=== PATIENT | male | born 1945 | race Caucasian/White ===

== ENCOUNTER 2017-11-18 00:10 | Inpatient (IN) | payer MEDICARE ==
[~2017-11-18] VITALS: Ht 167.6 cm; Wt 74.5 kg
[2017-11-18] MEDS ORDERED: ACETAMINOPHEN 325 MG TABLET PO PRN (01:00)
[2017-11-18] MEDS ORDERED: MAG HYDROX/AL HYDROX/SIMETH 30 ML ORAL.SUSP PO PRN (01:00)
[2017-11-18] MEDS ORDERED: MAGNESIUM HYDROXIDE 2,400 MG/30 ML ORAL.SUSP. PO PRN (01:00)
[2017-11-18] MEDS ORDERED: METHYL SALICYLATE/MENTHOL TOPICAL OINTMENT 29GM TUBE. TP PRN (01:00)
[2017-11-18 01:01] VITALS: BP 103/75
[2017-11-18] MEDS ORDERED: TADA5TAB PO (01:28)
[2017-11-18] MEDS ORDERED: TURM500C7 PO (01:28)
[2017-11-18] MEDS ORDERED: ALFU10TA23 PO (01:28)
[2017-11-18 07:39] LABS: BASO # 0.1 x10^3/uL (0.0-0.2); BASO % 1 % (0-3); EOS # 0.3 x10^3/uL (0.0-0.7); EOS % 5 % (0-3); HEMATOCRIT 47.7 % (39.0-53.0); HEMOGLOBIN 16.6 g/dL (13.0-17.5); LYMPH # 1.5 x10^3/uL (1.0-4.8); LYMPH % 29 % (24-48); MEAN CORPUSCULAR HEMOGLOBIN 32 pg (25-35); MEAN CORPUSCULAR HGB CONC 35 g/dL (31-37); MEAN CORPUSCULAR VOLUME 93 fL (79-100); MONO # 0.4 x10^3/uL (0.0-1.1); MONO % 8 % (0-9); NEUT # 2.9 x10^3uL (1.8-7.7); NEUT % 56 % (31-73); PLATELET COUNT 293 x10^3/uL (140-400); RED BLOOD COUNT 5.13 x10^6/uL (4.30-5.70); RED CELL DISTRIBUTION WIDTH 14.8 % (11.5-14.5); WHITE BLOOD COUNT 5.1 x10^3/uL (4.0-11.0)
[2017-11-18 07:42] LABS: ALBUMIN/GLOBULIN RATIO 0.9 (1.0-1.7); CALCIUM 9.4 mg/dL (8.5-10.1); GFR 73.9; MAGNESIUM 1.9 mg/dL (1.8-2.4); POTASSIUM 3.8 mmol/L (3.5-5.1); TOTAL PROTEIN 6.2 g/dL (6.4-8.2)
[2017-11-18 08:04] LABS: CLARITY,URINE CLEAR; COLOR,URINE YELLOW
[2017-11-18 08:05] LABS: BACTERIA,URINE 0 /HPF (0-FEW); BILIRUBIN,URINE NEG (NEG); GLUCOSE,URINE NEG (NEG); HYALINE CASTS, URINE OCC /HPF; NITRITE,URINE NEG (NEG); RBC,URINE RARE /HPF (0-2); SQUAMOUS EPITHELIAL CELL,UR FEW /LPF; UROBILINOGEN,URINE 0.2 mg/dL (0.2 mg/dL); WBC,URINE RARE /HPF (0-4)
[2017-11-18] MEDS: LISINOPRIL 5 MG TABLET. PO SCH (09:00)
[2017-11-18] MEDS: PYRIDOXINE 50 MG TABLET. PO SCH (09:00)
[2017-11-18] MEDS ORDERED: TURMERIC ROOT EXTRACT PO SCH (09:00)
[2017-11-18] MEDS ORDERED: TURMERIC PO SCH (09:00)
[2017-11-18 09:20] VITALS: BP 112/82
[2017-11-18] MEDS: NICOTINE 21MG PATCH. TD SCH (09:23)
[2017-11-18] MEDS: ASPIRIN ENTERIC COATED 81 MG TABLET.DR. PO SCH ×2 (09:23→20:27)
[2017-11-18] MEDS: TAMSULOSIN 0.4 MG CAP.ER.24H. PO SCH (09:23)
[2017-11-18] MEDS: CHOLECALCIFEROL (VITAMIN D3) 1,000 UNIT TABLET PO SCH (09:23)
[2017-11-18 14:38] LABS: THYROID STIM HORMONE (TSH) 1.373 uIU/mL (0.358-3.740)
[2017-11-18 15:52] VITALS: BP 128/90
[2017-11-18] MEDS ORDERED: MELATONIN 3 MG TABLET PO PRN (19:30)
[2017-11-18] MEDS: ATORVASTATIN CALCIUM 20 MG TABLET PO SCH (20:33)
--- NOTE | 2017-11-18 20:43 | PDOC ---
Exam Note: Chan Note: Please also refer to the separate dictated note~for this date of service dictated separately.~Patient seen individually. Discussed the patient with Nursing staff reviewed the chart.~Reviewed interim history and current functioning. Reviewed vital signs,~Labs/ Radiology~and current medications noted below. Continue current treatment with the changes noted in the dictated addendum note Assessment: Vital Signs: Vital Signs Date Time Temp Pulse Resp B/P (MAP) Pulse Ox O2 Delivery O2 Flow Rate FiO2 11/18/17 15:52 97.8 84 18 128/90 (103) 99 Labs: Laboratory Tests Test 11/18/17 06:47 11/18/17 07:18 White Blood Count 5.1 x10^3/uL (4.0-11.0) Red Blood Count 5.13 x10^6/uL (4.30-5.70) Hemoglobin 16.6 g/dL (13.0-17.5) Hematocrit 47.7 % (39.0-53.0) Mean Corpuscular Volume 93 fL (79-100) Mean Corpuscular Hemoglobin 32 pg (25-35) Mean Corpuscular Hemoglobin Concent 35 g/dL (31-37) Red Cell Distribution Width 14.8 % (11.5-14.5) H Platelet Count 293 x10^3/uL (140-400) Neutrophils (%) (Auto) 56 % (31-73) Lymphocytes (%) (Auto) 29 % (24-48) Monocytes (%) (Auto) 8 % (0-9) Eosinophils (%) (Auto) 5 % (0-3) H Basophils (%) (Auto) 1 % (0-3) Neutrophils # (Auto) 2.9 x10^3uL (1.8-7.7) Lymphocytes # (Auto) 1.5 x10^3/uL (1.0-4.8) Monocytes # (Auto) 0.4 x10^3/uL (0.0-1.1) Eosinophils # (Auto) 0.3 x10^3/uL (0.0-0.7) Basophils # (Auto) 0.1 x10^3/uL (0.0-0.2) Sodium Level 138 mmol/L (136-145) Potassium Level 3.8 mmol/L (3.5-5.1) Chloride Level 105 mmol/L (98-107) Carbon Dioxide Level 26 mmol/L (21-32) Anion Gap 7 (6-14) Blood Urea Nitrogen 18 mg/dL (8-26) Creatinine 1.0 mg/dL (0.7-1.3) Estimated GFR (Cockcroft-Gault) 73.9 BUN/Creatinine Ratio 18 (6-20) Glucose Level 99 mg/dL (70-99) Calcium Level 9.4 mg/dL (8.5-10.1) Magnesium Level 1.9 mg/dL (1.8-2.4) Iron Level 154 ug/dL (65-175) Total Iron Binding Capacity 271 ug/dL (250-450) Iron Saturation 57 % (15-34) H Total Bilirubin 1.0 mg/dL (0.2-1.0) Aspartate Amino Transferase (AST) 19 U/L (15-37) Alanine Aminotransferase (ALT) 25 U/L (16-63) Alkaline Phosphatase 72 U/L (46-116) Total Protein 6.2 g/dL (6.4-8.2) L Albumin 3.0 g/dL (3.4-5.0) L Albumin/Globulin Ratio 0.9 (1.0-1.7) L Triglycerides Level 67 mg/dL (0-150) Cholesterol Level 135 mg/dL (0-200) LDL Cholesterol, Calculated 59 mg/dL (0-100) VLDL Cholesterol, Calculated 13 mg/dL (0-40) Non-HDL Cholesterol Calculated 72 mg/dL (0-129) HDL Cholesterol 63 mg/dL (40-60) H Cholesterol/HDL Ratio 2.0 Vitamin B12 Level 346 pg/mL (247-911) 25-Hydroxy Vitamin D Total 27.7 ng/mL (30-100) L Thyroid Stimulating Hormone (TSH) 1.373 uIU/mL (0.358-3.740) Treponema pallidum Antibody Nonreactive (Nonreactive) Urine Collection Type Unknown Urine Color Yellow Urine Clarity Clear Urine pH 6.5 Urine Specific [place] 1.010 Urine Protein Neg (NEG-TRACE) Urine Glucose (UA) Neg mg/dL (NEG) Urine Ketones (Stick) Neg mg/dL (NEG) Urine Blood Neg (NEG) Urine Nitrite Neg (NEG) Urine Bilirubin Neg (NEG) Urine Urobilinogen Dipstick 0.2 mg/dL (0.2 mg/dL) Urine Leukocyte Esterase Neg (NEG) Urine RBC Rare /HPF (0-2) Urine WBC Rare /HPF (0-4) Urine Squamous Epithelial Cells Few /LPF Urine Bacteria 0 /HPF (0-FEW) Urine Hyaline Casts Occ /HPF Current Medications: Meds: Current Medications Acetaminophen (Tylenol) 650 mg PRN Q6HRS PRN PO PAIN / TEMP; Start 11/18/17 at 01:00 Multi-Ingredient Ointment (Analgesic [place]) 1 sonal PRN QID PRN TP MUSCLE PAIN; Start 11/18/17 at 01:00 Al Hydroxide/Mg Hydroxide (Mylanta Plus Xs) 15 ml PRN AFTMEALHC PRN PO DYSPEPSIA; Start 11/18/17 at 01:00 Magnesium Hydroxide (Milk Of Magnesia) 2,400 mg PRN QHS PRN PO CONSTIPATION; Start 11/18/17 at 01:00 Nicotine (Nicoderm Cq 21mg) 1 patch DAILY TD Last administered on 11/18/17at 09: 23; Start 11/18/17 at 09:00 Aspirin (Aspirin Enteric Coated) 81 mg BID PO Last administered on 11/18/17at 20 :27; Start 11/18/17 at 09:00 Atorvastatin Calcium (Lipitor) 80 mg QHS PO Last administered on 11/18/17at 20: 33; Start 11/18/17 at 21:00 Vitamin D (Vitamin D3) 2,000 unit DAILY PO Last administered on 11/18/17at 09:23 ; Start 11/18/17 at 09:00 Lisinopril (Prinivil) 5 mg DAILY PO ; Start 11/18/17 at 09:00 Pyridoxine HCl (Vitamin B-6) 100 mg DAILY PO ; Start 11/18/17 at 09:00 Tamsulosin HCl (Flomax) 0.4 mg DAILY PO Last administered on 11/18/17at 09:23; Start 11/18/17 at 09:00 Non-Formulary Medication (Turmeric/ Turmeric Root Extract (Turmeric 450-50 mg Capsule)) 1 each DAILY PO ; Start 11/18/17 at 09:00; Stop 11/18/17 at 09:00; Status DC Melatonin 3 mg PRN QHS PRN PO INSOMNIA; Start 11/18/17 at 19:30 Multivitamins/ Minerals (I-Omar) 1 tab DAILY PO ; Start 11/19/17 at 09:00 Thiamine HCl (Vitamin B-1) 100 mg DAILY PO ; Start 11/19/17 at 09:00 Active Scripts Active Reported Uroxatral (Alfuzosin HCl) 10 Mg Tab.er.24h 10 Mg PO DAILY Turmeric 450-50 mg Capsule (Turmeric/Turmeric Root Extract) 1 Each Capsule 1 Each PO DAILY I have reviewed the current psychotropics carefully including drug interactions. Risk benefit ratio favors no change other than as noted in my dictated progress note. Diagnosis: Problems: (1) Alcohol dependence VALE BRYSON MD Nov 18, 2017 20:42
[2017-11-18 22:07] LABS: THYROXINE 5.3 ug/dL (4.5-12.0)
[2017-11-19 05:36] VITALS: BP 155/96
[2017-11-19 06:20] LABS: HEMOGLOBIN A1C 5.3 % (4.8-5.6)
[2017-11-19] MEDS: NICOTINE 21MG PATCH. TD SCH ×2 (09:00→09:51)
[2017-11-19] MEDS: LISINOPRIL 5 MG TABLET. PO SCH (09:51)
[2017-11-19] MEDS: TAMSULOSIN 0.4 MG CAP.ER.24H. PO SCH (09:51)
[2017-11-19] MEDS: CHOLECALCIFEROL (VITAMIN D3) 1,000 UNIT TABLET PO SCH (09:52)
[2017-11-19] MEDS: ASPIRIN ENTERIC COATED 81 MG TABLET.DR. PO SCH ×2 (09:52→20:53)
[2017-11-19] MEDS: THIAMINE 100 MG TABLET. PO SCH (09:57)
[2017-11-19] MEDS: MULTIVITAMIN I-VITE TABLET. PO SCH (09:57)
[2017-11-19] MEDS: PYRIDOXINE 50 MG TABLET. PO SCH (09:58)
[2017-11-19] MEDS ORDERED: risperiDONE 0.25 MG TABLET. PO ONE (16:00)
[2017-11-19 16:16] VITALS: BP 120/87
--- NOTE | 2017-11-19 20:39 | PDOC ---
Exam Note: Chan Note: Please also refer to the separate dictated note~for this date of service dictated separately.~Patient seen individually. Discussed the patient with Nursing staff reviewed the chart.~Reviewed interim history and current functioning. Reviewed vital signs,~Labs/ Radiology~and current medications noted below. Continue current treatment with the changes noted in the dictated addendum note Assessment: Vital Signs: Vital Signs Date Time Temp Pulse Resp B/P (MAP) Pulse Ox O2 Delivery O2 Flow Rate FiO2 11/19/17 16:16 99.0 98 17 120/87 (98) 97 Room Air I&O Intake and Output 11/19/17 06:59 Intake Total 1900 ml Balance 1900 ml Intake Oral 1800 ml Tube Feeding 100 ml # Voids 1 Current Medications: Meds: Current Medications Acetaminophen (Tylenol) 650 mg PRN Q6HRS PRN PO PAIN / TEMP; Start 11/18/17 at 01:00 Multi-Ingredient Ointment (Analgesic [place]) 1 sonal PRN QID PRN TP MUSCLE PAIN; Start 11/18/17 at 01:00 Al Hydroxide/Mg Hydroxide (Mylanta Plus Xs) 15 ml PRN AFTMEALHC PRN PO DYSPEPSIA; Start 11/18/17 at 01:00 Magnesium Hydroxide (Milk Of Magnesia) 2,400 mg PRN QHS PRN PO CONSTIPATION; Start 11/18/17 at 01:00 Nicotine (Nicoderm Cq 21mg) 1 patch DAILY TD Last administered on 11/19/17at 09: 51; Start 11/18/17 at 09:00 Aspirin (Aspirin Enteric Coated) 81 mg BID PO Last administered on 11/19/17at 09 :52; Start 11/18/17 at 09:00 Atorvastatin Calcium (Lipitor) 80 mg QHS PO Last administered on 11/18/17at 20: 33; Start 11/18/17 at 21:00 Vitamin D (Vitamin D3) 2,000 unit DAILY PO Last administered on 11/19/17at 09:52 ; Start 11/18/17 at 09:00 Lisinopril (Prinivil) 5 mg DAILY PO Last administered on 11/19/17at 09:51; Start 11/18/17 at 09:00 Pyridoxine HCl (Vitamin B-6) 100 mg DAILY PO Last administered on 11/19/17at 09: 58; Start 11/18/17 at 09:00 Tamsulosin HCl (Flomax) 0.4 mg DAILY PO Last administered on 11/19/17at 09:51; Start 11/18/17 at 09:00 Non-Formulary Medication (Turmeric/ Turmeric Root Extract (Turmeric 450-50 mg Capsule)) 1 each DAILY PO ; Start 11/18/17 at 09:00; Stop 11/18/17 at 09:00; Status DC Melatonin 3 mg PRN QHS PRN PO INSOMNIA; Start 11/18/17 at 19:30 Multivitamins/ Minerals (I-Omar) 1 tab DAILY PO Last administered on 11/19/17at 09:57; Start 11/19/17 at 09:00 Thiamine HCl (Vitamin B-1) 100 mg DAILY PO Last administered on 11/19/17at 09:57 ; Start 11/19/17 at 09:00 Risperidone (RisperDAL) 0.25 mg 1X ONCE PO Last administered on 11/19/17at 17: 20; Start 11/19/17 at 16:00; Stop 11/19/17 at 16:02; Status DC Risperidone (RisperDAL) 0.25 mg QHS PO ; Start 11/19/17 at 21:00 Active Scripts Active Reported Uroxatral (Alfuzosin HCl) 10 Mg Tab.er.24h 10 Mg PO DAILY Turmeric 450-50 mg Capsule (Turmeric/Turmeric Root Extract) 1 Each Capsule 1 Each PO DAILY I have reviewed the current psychotropics carefully including drug interactions. Risk benefit ratio favors no change other than as noted in my dictated progress note. Diagnosis: Problems: (1) Alcohol dependence VALE BRYSON MD Nov 19, 2017 20:39
[2017-11-19] MEDS: ATORVASTATIN CALCIUM 20 MG TABLET PO SCH (20:53)
[2017-11-19] MEDS ORDERED: risperiDONE 0.25 MG TABLET. PO SCH (21:00)
--- NOTE | 2017-11-19 22:22 | HP ---
ADMIT DATE: 11/18/2017 IDENTIFYING DATA: The patient is a 72-year-old male who was referred from the Emergency Room at [facility] in [place], [place] by the ER physician and also by his primary care physician, Dr. Dubon after he was found driving in circles in the parking lot with the doors open. He had been increasingly confused, obsessive, manic with racing thoughts, and grandiosity. Please refer to the psychosocial assessment for detailed history and specific instances. The ER physician had activated the DPOA because it appeared the patient was incapable of making decisions for his health, welfare, and finances at that time. He was admitted by sister who is his DPOA. CHIEF COMPLAINT: "I need something to help my mind, but I need to go home now and I will go to Dr. Dubon at the office tomorrow." HISTORY OF PRESENT ILLNESS: The patient has a history of increasing manic symptoms, confusion. He has had racing thoughts, fairly bizarre behaviors, appeared psychotic, has been hallucinating, having "evangelical experiences." At the treatment team meeting morning of 11/19/2017, the patient's sister and daughter attended the conference and described at length some of the patient's dramatically manic behaviors. In the past, reportedly, when he has had ideas, he has written profusely and extensively on paper plates and other objects that may be lying in front of him. This is shared social service staff, Jaimie and nursing staff. He minimizes his mood swings, but a close review of his history is strongly suggestive of a diagnosis of bipolar disorder with psychotic features. PAST PSYCHIATRIC HISTORY: The patient has been using 7 ounces of [place] every night, but denies any other psychiatric problems. Some of the episodic manic spells are as described in the social service notes and notes from the family. PAST MEDICAL HISTORY: Positive for hypertension, hyperlipidemia, BPH, abdominal aortic aneurysm repair, coronary artery disease, and atrial fibrillation. CODE STATUS: Full code. DRUG ALLERGIES: Negative. ACCU-CHEKS: None. DIET: Regular. Takes his medications whole. Ambulates ad-raquel, tolerates himself, current psychotropics negative at admission. FAMILY HISTORY: Noncontributory. 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 No drug abuse history. There is a history that the patient has been seeing a and team who apparently were masquerading as physicians, and have taken a fair amount of money from the patient. Again, details are shared by the social service staff and I will defer to their review of information and social service notes. REACTION TO HOSPITALIZATION: The patient accepting of it, but wanting to leave prematurely. ASSETS: Has a supportive family. MENTAL STATUS EXAMINATION: The patient was seen individually evening of 11/18/2017. He is well oriented. Speech coherent, rapid at times, somewhat grandiose, talking at length about his evangelical experiences, minimizing more psychiatric problems, was then admitting about his racing thoughts and other thought disorder. No active suicidal or homicidal ideation. Attention span short. Language function intact. LABORATORY DATA: Reviewed. IMPRESSION: Probable bipolar 1 disorder, manic with psychotic features; anxiety disorder, unspecified; alcohol overuse. Rest as above. PLAN: Admit to Geropsychiatry Unit at [facility]. I will see the patient daily individually from a psychiatric standpoint, medical followup per Dr. Carrasco/Dr. Lester. We will gather further historical information from the family and the patient's primary care physician, Dr. Dubon who he seems to respect significantly. At the time of this dictation, I have obtained further information as above. On 11/19/2017, the patient was wanting to be discharged against medical advice. In fact, his DPOA has been activated and his sister was part of the treatment team meeting morning of 11/19/2017, along with his daughter and wanting him to continue his hospitalization, evaluation, and treatment rather than be discharged against medical advice. Also, Dr. Dubon did call the unit and talked with the patient and this was very helpful in convincing the patient not to insist against medical advice discharge. We will have psychological testing with Dr. Hernandez for clarification of diagnosis as well. MAN Francesco BRYSON MD DR: ROHIT/tod JOB#: [id number] / [id number]
--- NOTE | 2017-11-20 01:19 | PN ---
DATE: 11/19/2017 This note covers elements not covered in my initial note 11/19/2017. SUBJECTIVE: The patient slept 3-1/4 hours previous evening. He was seen at length during treatment team meeting, which he attended along with his daughter Marilee and sister Kaia. The patient talked about being easily excited, having racing thoughts, having spiritism visions, and the family shared their concerns about his noah or psychotic symptoms. As noted in my previous note, Dr. Dubon, his primary care physician did talk to him and convinced him to continue his hospitalization as this patient was initially wanting to be discharged against medical advice. The DPOA status has been activated as the ER physician had been deemed him incapacitated to make decisions for his health and welfare. MENTAL STATUS EXAM: The patient is reasonably oriented. Speech coherent, rapid. He is quite irritable, labile in his mood, paranoid. Able to do serial 7's, able to spell world forward and backward, no errors. Denies active suicidal or homicidal ideation. Attention span short. Language function intact. IMPRESSION: Bipolar 1 disorder, manic, probable with psychotic features; anxiety disorder, unspecified; alcohol over usage. PLAN: Start Risperdal 0.25 mg in the afternoon x 1 and then 0.25 mg at bedtime scheduled. We will also start melatonin 3 mg at bedtime p.r.n. for insomnia. Consider Depakote as a mood stabilizer. I had 5-7 telephone conversations with Jaimie, social service staff, nursing staff and other staff members about the patient's continued manic, psychotic symptoms, initial in systems on AMA discharge, and then agreeing to continue his hospitalization as convinced by Dr. Dubon and his DPOA. MAN Francesco RBYSON MD DR: ROHIT/tod JOB#: [id number] / [id number]
[2017-11-20 06:25] VITALS: BP 126/84
[2017-11-20] MEDS: TAMSULOSIN 0.4 MG CAP.ER.24H. PO SCH (08:20)
[2017-11-20] MEDS: MULTIVITAMIN I-VITE TABLET. PO SCH (08:20)
[2017-11-20] MEDS: PYRIDOXINE 50 MG TABLET. PO SCH (08:20)
[2017-11-20] MEDS: NICOTINE 21MG PATCH. TD SCH (08:20)
[2017-11-20] MEDS: CHOLECALCIFEROL (VITAMIN D3) 1,000 UNIT TABLET PO SCH (08:20)
[2017-11-20] MEDS: THIAMINE 100 MG TABLET. PO SCH (08:21)
[2017-11-20] MEDS: LISINOPRIL 5 MG TABLET. PO SCH (08:21)
[2017-11-20] MEDS: ASPIRIN ENTERIC COATED 81 MG TABLET.DR. PO SCH ×2 (08:21→21:00)
[2017-11-20 15:52] VITALS: BP 140/96
[2017-11-20] MEDS ORDERED: ASPI-612 PO (20:05)
[2017-11-20] MEDS ORDERED: THIA100T8 PO (20:06)
[2017-11-20] MEDS ORDERED: RISP0.5T3 PO (20:06)
[2017-11-20] MEDS ORDERED: MULT-317 PO (20:07)
[2017-11-20] MEDS ORDERED: MELA3TAB2 PO (20:08)
--- NOTE | 2017-11-20 20:45 | PDOC ---
Exam Note: Chan Note: Please also refer to the separate dictated note~for this date of service dictated separately.~Patient seen individually. Discussed the patient with Nursing staff reviewed the chart.~Reviewed interim history and current functioning. Reviewed vital signs,~Labs/ Radiology~and current medications noted below. Continue current treatment with the changes noted in the dictated addendum note Assessment: Vital Signs: Vital Signs Date Time Temp Pulse Resp B/P (MAP) Pulse Ox O2 Delivery O2 Flow Rate FiO2 11/20/17 15:52 97.9 99 18 140/96 (111) 98 11/20/17 06:25 Room Air I&O Intake and Output 11/20/17 07:00 Intake Total 780 ml Balance 780 ml Intake Oral 780 ml # Bowel Movements 1 Current Medications: Meds: Current Medications Acetaminophen (Tylenol) 650 mg PRN Q6HRS PRN PO PAIN / TEMP; Start 11/18/17 at 01:00 Multi-Ingredient Ointment (Analgesic [place]) 1 sonal PRN QID PRN TP MUSCLE PAIN; Start 11/18/17 at 01:00 Al Hydroxide/Mg Hydroxide (Mylanta Plus Xs) 15 ml PRN AFTMEALHC PRN PO DYSPEPSIA; Start 11/18/17 at 01:00 Magnesium Hydroxide (Milk Of Magnesia) 2,400 mg PRN QHS PRN PO CONSTIPATION; Start 11/18/17 at 01:00 Nicotine (Nicoderm Cq 21mg) 1 patch DAILY TD Last administered on 11/20/17at 08: 20; Start 11/18/17 at 09:00 Aspirin (Aspirin Enteric Coated) 81 mg BID PO Last administered on 11/20/17at 08 :21; Start 11/18/17 at 09:00 Atorvastatin Calcium (Lipitor) 80 mg QHS PO Last administered on 11/19/17at 20: 53; Start 11/18/17 at 21:00 Vitamin D (Vitamin D3) 2,000 unit DAILY PO Last administered on 11/20/17at 08:20 ; Start 11/18/17 at 09:00 Lisinopril (Prinivil) 5 mg DAILY PO Last administered on 11/20/17at 08:21; Start 11/18/17 at 09:00 Pyridoxine HCl (Vitamin B-6) 100 mg DAILY PO Last administered on 11/20/17at 08: 20; Start 11/18/17 at 09:00 Tamsulosin HCl (Flomax) 0.4 mg DAILY PO Last administered on 11/20/17at 08:20; Start 11/18/17 at 09:00 Non-Formulary Medication (Turmeric/ Turmeric Root Extract (Turmeric 450-50 mg Capsule)) 1 each DAILY PO ; Start 11/18/17 at 09:00; Stop 11/18/17 at 09:00; Status DC Melatonin 3 mg PRN QHS PRN PO INSOMNIA; Start 11/18/17 at 19:30 Multivitamins/ Minerals (I-Omar) 1 tab DAILY PO Last administered on 11/20/17at 08:20; Start 11/19/17 at 09:00 Thiamine HCl (Vitamin B-1) 100 mg DAILY PO Last administered on 11/20/17at 08:21 ; Start 11/19/17 at 09:00 Risperidone (RisperDAL) 0.25 mg 1X ONCE PO Last administered on 11/19/17at 17: 20; Start 11/19/17 at 16:00; Stop 11/19/17 at 16:02; Status DC Risperidone (RisperDAL) 0.25 mg QHS PO Last administered on 11/19/17at 20:54; Start 11/19/17 at 21:00; Stop 11/20/17 at 18:56; Status DC Risperidone (RisperDAL) 0.5 mg QHS PO ; Start 11/20/17 at 21:00 Active Scripts Active Reported Melatonin 3 Mg Tablet 3 Mg PO PRN QHS PRN One Daily Complete (Multivitamin With Minerals) 1 Each Tablet 1 Each PO Thiamine Hcl 100 Mg Tablet 100 Mg PO Risperidone 0.5 Mg Tablet 1 Tab PO QHS Aspirin Ec (Aspirin) 81 Mg Tablet.dr 81 Mg PO BID Uroxatral (Alfuzosin HCl) 10 Mg Tab.er.24h 10 Mg PO DAILY Turmeric 450-50 mg Capsule (Turmeric/Turmeric Root Extract) 1 Each Capsule 1 Each PO DAILY I have reviewed the current psychotropics carefully including drug interactions. Risk benefit ratio favors no change other than as noted in my dictated progress note. Diagnosis: Problems: (1) Alcohol dependence (2) Anxiety disorder (3) Bipolar 1 disorder, manic, moderate BRAYDON,VALE Lau MD Nov 20, 2017 20:45
[2017-11-20] MEDS ORDERED: risperiDONE 0.5 MG TABLET. PO SCH (21:00)
[2017-11-20] MEDS: ATORVASTATIN CALCIUM 20 MG TABLET PO SCH (21:04)
--- NOTE | 2017-11-20 21:58 | PN ---
DATE: 11/20/2017 SUBJECTIVE: The patient denies any new medical or neurological complaints. The patient denies any recent falls, headaches, visual disturbances, chest pain, shortness of breath, or palpitation. OBJECTIVE: GENERAL: Well-developed, well-nourished male, not in acute distress. VITAL SIGNS: Blood pressure 126/84, respiratory rate 16, pulse 77, temperature 98.9, oxygen saturation 98% on room air. HEENT: Normocephalic, atraumatic, otherwise unremarkable. NECK: Supple. Negative for carotid bruit, lymphadenopathy, JVD, or thyromegaly. LUNGS: Clear to A and P. CARDIOVASCULAR: Regular rate and rhythm, normal S1, S2. There is no S3, S4, or murmur. ABDOMEN: Soft. Bowel sounds positive. EXTREMITIES: Negative for cyanosis, clubbing, or pitting edema. NEUROLOGIC: The patient is alert and oriented x 3. Speech is fluent. There is no language dysfunction, otherwise unremarkable. Cranial nerves are intact. No focal motor or sensory deficit. Deep tendon reflexes were symmetric and active without pathology responses. Gait and coordination are normal. IMPRESSION: 1. Acute encephalopathy -- resolved. 2. Possible bipolar disorder -- with manic features and intermittent psychosis. 3. Multiple medical problems include hypertension, hyperlipidemia, coronary artery disease. RECOMMENDATIONS: Continue with current medical and psychiatric care. The patient is neurologically stable. M Alex LUU MD DR: MARITO/tod JOB#: [id number] / [id number]
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
--- NOTE | 2017-11-21 14:35 | PDOC ---
Exam Note: Chan Note: Please also refer to the separate dictated note~for this date of service dictated separately.~Patient seen individually. Discussed the patient with Nursing staff reviewed the chart.~Reviewed interim history and current functioning. Reviewed vital signs,~Labs/ Radiology~and current medications noted below. Continue current treatment with the changes noted in the dictated addendum note. Late entry for 11/20/17 Assessment: Vital Signs: VS - Last 72 Hours, by Label Date Time Temp Pulse Resp B/P (MAP) Pulse Ox O2 Delivery O2 Flow Rate FiO2 11/20/17 15:52 97.9 99 18 140/96 (111) 98 11/20/17 08:21 77 126/84 11/20/17 06:25 98.9 77 16 126/84 (98) 98 Room Air 11/19/17 16:16 99.0 98 17 120/87 (98) 97 Room Air 11/19/17 09:51 81 155/96 11/19/17 05:36 97.2 81 19 155/96 (115) 100 11/18/17 15:52 97.8 84 18 128/90 (103) 99 Vital Signs Date Time Temp Pulse Resp B/P (MAP) Pulse Ox O2 Delivery O2 Flow Rate FiO2 11/20/17 15:52 97.9 99 18 140/96 (111) 98 11/20/17 06:25 Room Air I&O Intake and Output 11/21/17 07:00 Intake Total 1320 ml Balance 1320 ml Intake Oral 1320 ml Current Medications: Meds: Current Medications Acetaminophen (Tylenol) 650 mg PRN Q6HRS PRN PO PAIN / TEMP; Start 11/18/17 at 01:00; Stop 11/21/17 at 01:00; Status DC Multi-Ingredient Ointment (Analgesic [place]) 1 sonal PRN QID PRN TP MUSCLE PAIN; Start 11/18/17 at 01:00; Stop 11/21/17 at 01:00; Status DC Al Hydroxide/Mg Hydroxide (Mylanta Plus Xs) 15 ml PRN AFTMEALHC PRN PO DYSPEPSIA; Start 11/18/17 at 01:00; Stop 11/21/17 at 01:00; Status DC Magnesium Hydroxide (Milk Of Magnesia) 2,400 mg PRN QHS PRN PO CONSTIPATION; Start 11/18/17 at 01:00; Stop 11/21/17 at 01:00; Status DC Nicotine (Nicoderm Cq 21mg) 1 patch DAILY TD Last administered on 11/20/17 08: 20; Start 11/18/17 at 09:00; Stop 11/21/17 at 01:00; Status DC Aspirin (Aspirin Enteric Coated) 81 mg BID PO Last administered on 11/20/17at 21 :00; Start 11/18/17 at 09:00; Stop 11/21/17 at 01:00; Status DC Atorvastatin Calcium (Lipitor) 80 mg QHS PO Last administered on 11/20/17at 21: 04; Start 11/18/17 at 21:00; Stop 11/21/17 at 01:00; Status DC Vitamin D (Vitamin D3) 2,000 unit DAILY PO Last administered on 11/20/17at 08:20 ; Start 11/18/17 at 09:00; Stop 11/21/17 at 01:00; Status DC Lisinopril (Prinivil) 5 mg DAILY PO Last administered on 11/20/17at 08:21; Start 11/18/17 at 09:00; Stop 11/21/17 at 01:00; Status DC Pyridoxine HCl (Vitamin B-6) 100 mg DAILY PO Last administered on 11/20/17at 08: 20; Start 11/18/17 at 09:00; Stop 11/21/17 at 01:00; Status DC Tamsulosin HCl (Flomax) 0.4 mg DAILY PO Last administered on 11/20/17at 08:20; Start 11/18/17 at 09:00; Stop 11/21/17 at 01:00; Status DC Non-Formulary Medication (Turmeric/ Turmeric Root Extract (Turmeric 450-50 mg Capsule)) 1 each DAILY PO ; Start 11/18/17 at 09:00; Stop 11/18/17 at 09:00; Status DC Melatonin 3 mg PRN QHS PRN PO INSOMNIA; Start 11/18/17 at 19:30; Stop 11/21/17 at 01:00; Status DC Multivitamins/ Minerals (I-Omar) 1 tab DAILY PO Last administered on 11/20/17at 08:20; Start 11/19/17 at 09:00; Stop 11/21/17 at 01:00; Status DC Thiamine HCl (Vitamin B-1) 100 mg DAILY PO Last administered on 11/20/17at 08:21 ; Start 11/19/17 at 09:00; Stop 11/21/17 at 01:00; Status DC Risperidone (RisperDAL) 0.25 mg 1X ONCE PO Last administered on 11/19/17at 17: 20; Start 11/19/17 at 16:00; Stop 11/19/17 at 16:02; Status DC Risperidone (RisperDAL) 0.25 mg QHS PO Last administered on 11/19/17at 20:54; Start 11/19/17 at 21:00; Stop 11/20/17 at 18:56; Status DC Risperidone (RisperDAL) 0.5 mg QHS PO Last administered on 11/20/17at 21:06; Start 11/20/17 at 21:00; Stop 11/21/17 at 01:00; Status DC Active Scripts Active Reported Melatonin 3 Mg Tablet 3 Mg PO PRN QHS PRN One Daily Complete (Multivitamin With Minerals) 1 Each Tablet 1 Each PO Thiamine Hcl 100 Mg Tablet 100 Mg PO Risperidone 0.5 Mg Tablet 1 Tab PO QHS Aspirin Ec (Aspirin) 81 Mg Tablet.dr 81 Mg PO BID Uroxatral (Alfuzosin HCl) 10 Mg Tab.er.24h 10 Mg PO DAILY Turmeric 450-50 mg Capsule (Turmeric/Turmeric Root Extract) 1 Each Capsule 1 Each PO DAILY I have reviewed the current psychotropics carefully including drug interactions. Risk benefit ratio favors no change other than as noted in my dictated progress note. Diagnosis: Problems: (1) Bipolar 1 disorder, manic, moderate (2) Anxiety disorder (3) Alcohol dependence VALE BRYSON MD Nov 21, 2017 14:35
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
== END 2017-11-20 21:37 | disposition left against medical advice (07) | DRG 885 ==
LOC: GEROPSY 00:23
PROVIDERS: ADMIT Psychiatry & Neurology Psychiatry; ATTEND Psychiatry & Neurology Psychiatry
DX: F31.12 Bipolar disorder, current episode manic without psychotic features, moderate (principal); G93.40 Encephalopathy, unspecified; F63.9 Impulse disorder, unspecified; F10.20 Alcohol dependence, uncomplicated; E78.5 Hyperlipidemia, unspecified; F41.9 Anxiety disorder, unspecified; I10 Essential (primary) hypertension; I25.10 Atherosclerotic heart disease of native coronary artery without angina pectoris; N40.0 Benign prostatic hyperplasia without lower urinary tract symptoms; I48.91 Unspecified atrial fibrillation; Z86.79 Personal history of other diseases of the circulatory system; Z87.891 Personal history of nicotine dependence
CPT/HCPCS: 36415; 80053; 80061; 81001; 82306; 82607; 83036; 83540; 83550; 83735; 84436; 84443; 84480; 85025; 86592; 99407